=== PATIENT | female | born 1955 | race Caucasian/White ===

== ENCOUNTER → 2019-12-29 | Outpatient (CLI) | payer MEDICARE, OTHER ==
[~2019-12-29] MED LIST: ALENDRONATE SOD70 MG PO; CALCIUM 600 +1 EA11 PO; CYMBALTA60 MG PO; FLEXERIL PO; KAPVAY0.1 MG PO; LISINOPRIL PO; LISINOPRIL-HCT1 EACH PO; MAGNESIUM250 M1 PO; NEURONTIN300 MG PO; NORVASC 2.5 MG2.5 M1 PO; ROSUVASTATIN CA10 MG PO; TRAMADOL 50 MG50 MG PO; TRAZODONE HCL50 MG PO; VITAMIN D3100 MCG PO
--- NOTE | 2020-01-19 14:42 | PAINCON ---
[address] [address] PAIN MANAGEMENT CONSULTATION Name: JAMMIETHANH [facility] [id number] Admission: 12/29/19 Attend Phys: Nba Bradshaw MD Discharge: Date of : 53 Report #: [id number] THIS REPORT FOR: //name// cc: Liz Wan Jacqueline D. FNP ~ CC: Liz Bradshaw DATE OF SERVICE: 12/29/2019 CHIEF COMPLAINT: Chronic back pain. HISTORY: The patient is a 64-year-old female who has been referred to the pain clinic with pain, which has been problematic since 2017. She states that she is having shooting pain in her spine from an injury. She notes that the pain is worse with movement, lying down can worsen the pain, describes as continuous, steady, constant, periodic, burning, shooting, aching, throbbing, pounding, sharp and stabbing. She rates it as an 8/10 on most days and it is a 9/10 today at the time of our interview. It radiates around the lower portion of her back on the left side and into the area of the hip. She has had back surgery. She has been seen by surgeons who state that she needs a significant surgery involving her back and may need 2 surgeries, one in the back as well as one in the abdominal area or the lateral portion of her back. She feels that is more surgeries and she is willing to undergo at this juncture. She feels that pain medications are helpful and would like to continue with conservative approach at this juncture. She has been a significant amount of time in the hospital after surgery. ALLERGIES: CHANTIX CAUSES HEADACHES, NONSTEROIDAL ANTI-INFLAMMATORY MEDICATIONS, CODEINE CAUSES HEADACHES. CURRENT MEDICATIONS: 1. Fosamax. 2. Norvasc 5 mg. 3. Calcium 600 mg. 4. Vitamin D3. 5. Catapres 0.1 mg. 6. Flexeril 10 mg. 7. Cymbalta 30 mg. 8. Flonase 50 mcg nasal spray. 9. Gabapentin 300 mg t.i.d. 10. Lisinopril 10 mg. 11. Meloxicam 15 mg. 12. Trazodone 50 mg. 13. Clobetasol for seborrhe[place] [address] PAIN MANAGEMENT CONSULTATION Name: THANH AGUDELO Room: [facility]#: [id number] Admission: 12/29/19 Attend Phys: Nba Bradshaw MD Discharge: Date of : 53 Report #: [id number] PAST MEDICAL HISTORY: 1. Anxiety. 2. Chronic back pain. 3. Cervical cancer in the 1970s. 4. Colonic polyps. 5. Hyperplastic adenomatous 05/2014. 6. Dementia. 7. Depression. 8. Eczema. 9. Emphysema. 10. Fatty liver. 11. Fracture of the thoracic spine. 12. Hiatal hernia. 13. Hypercholesterolemia. 14. Hypertension. 15. Insomnia. 16. Memory loss. 17. Osteoporosis. 18. Dexa, 06/2017. 19. Prediabetes, 05/2018. 20. Pulmonary nodule. 21. Tobacco dependence. 22. Vertebral fracture. 23. Osteoporosis. 24. Vitamin D deficiency. PAST SURGICAL HISTORY: 1. Appendectomy. 2. Back surgery. 3. Bone density. 4. Carpal tunnel release, left. 5. Polypectomy, 05/2014 repeated 2016. 6. EGD procedure 05/2014. 7. Small hiatal hernia. 8. Knee arthroscopy. 9. Right lung surgery. SOCIAL HISTORY: She is retired, disabled in 2016. Used to work with home ____ and [employer]. REVIEW OF SYSTEMS: Generally good health at this juncture fatigue, weakness, wears glasses, joint pain, joint stiffness, weakness of muscles and joints, back pain, difficulty walking, memory loss, confusion, insomnia. PAIN CLINIC ASSESSMENT AND PQRS: [place] [address] PAIN MANAGEMENT CONSULTATION Name: THANH AGUDELO Nini [facility] [id number] Admission: 12/29/19 Attend Phys: Nba Bradshaw MD Discharge: Date of : 53 Report #: [id number] 1. The patient has significant osteoarthritic changes in her back. She is not being treated for rheumatoid arthritis, does have osteoporosis. 2. Height 5 feet 4 inches, weight 121 pounds, BMI is 20. 3. Vital Signs: Blood pressure 145/48, heart rate 79, respiratory rate 16, room air saturation 100%, temperature 97.6. 4. Pain intensity 6-7/10. 5. Fall history: The patient has not fallen in the last 3 months. 6. Blood thinner. The patient is not on a blood thinning medication. 7. Hypertension. The patient is being treated for hypertension. 8. Opioids. The patient receives medication from her primary. 9. Risk assessment tool, low for opioid use. 10. Recreational drug use: The patient denies. 11. Tobacco: The patient does smoke. 12. Alcohol: The patient rare. PHYSICAL EXAMINATION: GENERAL: The patient is alert and oriented x 3. Her affect is appropriate. Speech is fluent. HEENT: Normocephalic, atraumatic. The patient is wearing a facial mask. She sits in the chair, leaning to the left, has her lower extremity leaning to the right. MUSCULOSKELETAL: The patient has a severe kyphosis and some scoliosis in her back. IMPRESSION: Severe scoliosis, kyphosis and back pain. The patient has seen 4 surgeons. She elects not to have surgery at this juncture because of the momentous amount of surgery that would be needed. The patient would like to continue with oral medications to help control her pain. We will write for the patient's medications. The patient will continue with gabapentin 300 mg t.i.d. to b.i.d. She will also continue with tramadol 50 mg 1 p.o. t.i.d. as needed. The patient will also continue with tramadol 50 mg. A script for her medications has been provided. We would like to thank you for letting us participate in her care. We hope she continues to improve. <ELECTRONICALLY SIGNED> By: Nba Bradshaw MD 01/19/20 [id number]. Hector Bradshaw MD /nt
== END ==
LOC: M.PC 11:49
PROVIDERS: ATTEND Anesthesiology Pain Medicine
DX: G89.29 Other chronic pain (principal); E78.00 Pure hypercholesterolemia, unspecified; I10 Essential (primary) hypertension; Z90.49 Acquired absence of other specified parts of digestive tract; Z79.899 Other long term (current) drug therapy

== ENCOUNTER → 2020-02-21 | Outpatient (CLI) | payer MEDICARE, OTHER | LOC: M.PC 10:12 | PROVIDERS: ATTEND Anesthesiology Pain Medicine | DX: M54.5 Low back pain (principal); G89.29 Other chronic pain; F41.9 Anxiety disorder, unspecified; F32.9 Major depressive disorder, single episode, unspecified; J43.9 Emphysema, unspecified; K76.0 Fatty (change of) liver, not elsewhere classified; K44.9 Diaphragmatic hernia without obstruction or gangrene; I10 Essential (primary) hypertension; E78.00 Pure hypercholesterolemia, unspecified; M81.0 Age-related osteoporosis without current pathological fracture; R73.03 Prediabetes; Z87.891 Personal history of nicotine dependence; Z79.899 Other long term (current) drug therapy; Z98.890 Other specified postprocedural states ==

== ENCOUNTER → 2020-03-20 | Outpatient (CLI) | payer MEDICARE, OTHER | LOC: M.PC 10:23 | PROVIDERS: ATTEND Anesthesiology Pain Medicine | DX: M62.838 Other muscle spasm (principal); I10 Essential (primary) hypertension; F41.8 Other specified anxiety disorders; J43.9 Emphysema, unspecified; K76.0 Fatty (change of) liver, not elsewhere classified; K44.9 Diaphragmatic hernia without obstruction or gangrene; E78.00 Pure hypercholesterolemia, unspecified; M81.0 Age-related osteoporosis without current pathological fracture; R73.09 Other abnormal glucose; F17.200 Nicotine dependence, unspecified, uncomplicated; G89.29 Other chronic pain; Z88.8 Allergy status to other drugs, medicaments and biological substances; Z79.899 Other long term (current) drug therapy ==

== ENCOUNTER → 2020-04-17 | Outpatient (CLI) | payer MEDICARE, OTHER | LOC: M.PC 10:26 | PROVIDERS: ATTEND Anesthesiology Pain Medicine | DX: M54.5 Low back pain (principal); F41.8 Other specified anxiety disorders; J43.9 Emphysema, unspecified; K76.0 Fatty (change of) liver, not elsewhere classified; K44.9 Diaphragmatic hernia without obstruction or gangrene; E78.00 Pure hypercholesterolemia, unspecified; I10 Essential (primary) hypertension; M81.0 Age-related osteoporosis without current pathological fracture; F17.200 Nicotine dependence, unspecified, uncomplicated; Z88.8 Allergy status to other drugs, medicaments and biological substances; Z79.899 Other long term (current) drug therapy ==

== ENCOUNTER → 2020-05-15 | Outpatient (CLI) | payer MEDICARE, OTHER | LOC: M.PC 10:32 | PROVIDERS: ATTEND Anesthesiology Pain Medicine | DX: F41.9 Anxiety disorder, unspecified (principal); F32.9 Major depressive disorder, single episode, unspecified; M54.9 Dorsalgia, unspecified; K76.0 Fatty (change of) liver, not elsewhere classified; J43.9 Emphysema, unspecified; K44.9 Diaphragmatic hernia without obstruction or gangrene; E78.00 Pure hypercholesterolemia, unspecified; I10 Essential (primary) hypertension; M81.0 Age-related osteoporosis without current pathological fracture; R73.03 Prediabetes; F17.200 Nicotine dependence, unspecified, uncomplicated ==

== ENCOUNTER → 2020-06-21 | Outpatient (CLI) | payer MEDICARE, OTHER | LOC: M.RAD 06-14 13:30 | PROVIDERS: ATTEND Nurse Practitioner | DX: M81.0 Age-related osteoporosis without current pathological fracture (principal); I10 Essential (primary) hypertension; E78.00 Pure hypercholesterolemia, unspecified; J43.9 Emphysema, unspecified; N95.9 Unspecified menopausal and perimenopausal disorder; F17.200 Nicotine dependence, unspecified, uncomplicated ==

== ENCOUNTER → 2020-07-10 | Outpatient (CLI) | payer MEDICARE, OTHER | LOC: M.PC 10:00 | PROVIDERS: ATTEND Anesthesiology Pain Medicine | DX: G89.29 Other chronic pain (principal); M79.652 Pain in left thigh; M79.651 Pain in right thigh; M54.5 Low back pain; J43.9 Emphysema, unspecified; M62.838 Other muscle spasm; I10 Essential (primary) hypertension; E78.00 Pure hypercholesterolemia, unspecified; E55.9 Vitamin D deficiency, unspecified; F41.8 Other specified anxiety disorders; K76.0 Fatty (change of) liver, not elsewhere classified; K44.9 Diaphragmatic hernia without obstruction or gangrene; M81.0 Age-related osteoporosis without current pathological fracture; R73.03 Prediabetes; F17.200 Nicotine dependence, unspecified, uncomplicated; Z90.49 Acquired absence of other specified parts of digestive tract; Z68.21 Body mass index [BMI] 21.0-21.9, adult; Z79.891 Long term (current) use of opiate analgesic; Z79.899 Other long term (current) drug therapy ==

== ENCOUNTER → 2020-08-07 | Outpatient (CLI) | payer MEDICARE, OTHER ==
[~2020-08-07] MED LIST changes: +BONIVA150 MG PO
== END ==
LOC: M.PC 10:21
PROVIDERS: ATTEND Anesthesiology Pain Medicine
DX: M54.9 Dorsalgia, unspecified (principal); G89.29 Other chronic pain; J43.9 Emphysema, unspecified; K44.9 Diaphragmatic hernia without obstruction or gangrene; E78.00 Pure hypercholesterolemia, unspecified; K76.0 Fatty (change of) liver, not elsewhere classified; M81.0 Age-related osteoporosis without current pathological fracture; E55.9 Vitamin D deficiency, unspecified; F03.90 Unspecified dementia, unspecified severity, without behavioral disturbance, psychotic disturbance, mood disturbance, and anxiety; F32.9 Major depressive disorder, single episode, unspecified; F41.9 Anxiety disorder, unspecified; Z86.010 Personal history of colon polyps; Z79.899 Other long term (current) drug therapy; Z79.891 Long term (current) use of opiate analgesic

== ENCOUNTER → 2020-09-04 | Outpatient (CLI) | payer MEDICARE, OTHER | LOC: M.PC 10:17 | PROVIDERS: ATTEND Anesthesiology Pain Medicine | DX: M54.9 Dorsalgia, unspecified (principal); G89.29 Other chronic pain; J43.9 Emphysema, unspecified; E78.00 Pure hypercholesterolemia, unspecified; M19.90 Unspecified osteoarthritis, unspecified site; F17.210 Nicotine dependence, cigarettes, uncomplicated; F32.9 Major depressive disorder, single episode, unspecified; Z79.899 Other long term (current) drug therapy; Z79.891 Long term (current) use of opiate analgesic ==

== ENCOUNTER → 2020-10-02 | Outpatient (CLI) | payer MEDICARE, OTHER | LOC: M.PC 09:00 | PROVIDERS: ATTEND Anesthesiology Pain Medicine | DX: M54.5 Low back pain (principal); G89.29 Other chronic pain; J43.9 Emphysema, unspecified; K76.0 Fatty (change of) liver, not elsewhere classified; E78.00 Pure hypercholesterolemia, unspecified; I10 Essential (primary) hypertension; M81.0 Age-related osteoporosis without current pathological fracture; F32.9 Major depressive disorder, single episode, unspecified; F41.9 Anxiety disorder, unspecified; F17.200 Nicotine dependence, unspecified, uncomplicated; Z79.891 Long term (current) use of opiate analgesic; Z79.899 Other long term (current) drug therapy ==

== ENCOUNTER → 2020-10-30 | Outpatient (CLI) | payer MEDICARE, OTHER | LOC: M.PC 11:19 | PROVIDERS: ATTEND Anesthesiology Pain Medicine | DX: G47.62 Sleep related leg cramps (principal); I10 Essential (primary) hypertension; M19.90 Unspecified osteoarthritis, unspecified site; F41.8 Other specified anxiety disorders; J43.8 Other emphysema; K76.0 Fatty (change of) liver, not elsewhere classified; K44.9 Diaphragmatic hernia without obstruction or gangrene; E78.00 Pure hypercholesterolemia, unspecified; R73.03 Prediabetes; F17.290 Nicotine dependence, other tobacco product, uncomplicated; Z87.81 Personal history of (healed) traumatic fracture; Z79.899 Other long term (current) drug therapy ==

== ENCOUNTER → 2020-11-27 | Outpatient (CLI) | payer MEDICARE, OTHER | LOC: M.PC 11:02 | PROVIDERS: ATTEND Anesthesiology Pain Medicine | DX: G47.62 Sleep related leg cramps (principal); F41.8 Other specified anxiety disorders; G89.29 Other chronic pain; M54.50 Low back pain, unspecified; J43.8 Other emphysema; K76.0 Fatty (change of) liver, not elsewhere classified; K44.9 Diaphragmatic hernia without obstruction or gangrene; E78.00 Pure hypercholesterolemia, unspecified; I10 Essential (primary) hypertension; M81.8 Other osteoporosis without current pathological fracture; R73.03 Prediabetes; F17.200 Nicotine dependence, unspecified, uncomplicated; Z90.49 Acquired absence of other specified parts of digestive tract; Z96.659 Presence of unspecified artificial knee joint; Z79.899 Other long term (current) drug therapy ==

== ENCOUNTER → 2020-12-25 | Outpatient (CLI) | payer MEDICARE, OTHER ==
[~2020-12-25] MED LIST changes: +PEPCID COMPLET1 EACH PO; +TUMS200 MG PO
== END ==
LOC: M.PC 10:27
PROVIDERS: ATTEND Anesthesiology Pain Medicine
DX: M54.50 Low back pain, unspecified (principal); J43.8 Other emphysema; K76.0 Fatty (change of) liver, not elsewhere classified; K44.9 Diaphragmatic hernia without obstruction or gangrene; E78.00 Pure hypercholesterolemia, unspecified; I10 Essential (primary) hypertension; M19.90 Unspecified osteoarthritis, unspecified site; R73.03 Prediabetes; F41.8 Other specified anxiety disorders; F17.290 Nicotine dependence, other tobacco product, uncomplicated; Z88.8 Allergy status to other drugs, medicaments and biological substances; Z79.899 Other long term (current) drug therapy

== ENCOUNTER → 2021-02-19 | Outpatient (CLI) | payer MEDICARE, OTHER | LOC: M.PC 10:29 | PROVIDERS: ATTEND Anesthesiology Pain Medicine | DX: G89.29 Other chronic pain (principal); M54.50 Low back pain, unspecified; J43.9 Emphysema, unspecified; K76.0 Fatty (change of) liver, not elsewhere classified; K44.9 Diaphragmatic hernia without obstruction or gangrene; E78.00 Pure hypercholesterolemia, unspecified; I10 Essential (primary) hypertension; M81.0 Age-related osteoporosis without current pathological fracture; R73.03 Prediabetes; F41.8 Other specified anxiety disorders; Z72.0 Tobacco use; Z88.8 Allergy status to other drugs, medicaments and biological substances; Z79.899 Other long term (current) drug therapy ==